=== PATIENT | male | born 1995 | race African-American/Black ===

== ENCOUNTER 2025-11-24 00:15 | Emergency (ER) | payer OTHER ==
[~2025-11-24] VITALS: Ht 182.9 cm; Wt 95.0 kg
[2025-11-24 00:21] VITALS: O2SAT 100
[2025-11-24] MEDS: ONDANSETRON HCL 4MG/2ML INJ IV ONE (01:19)
[2025-11-24] MEDS: PANTOPRAZOLE SODIUM 40 MG/VIAL IV ONE (01:20)
[2025-11-24] MEDS: MAGNESIUM/ALUMINUM HYDROXIDE/SIMETHICONE 30ML UDC PO ONE (01:20)
[2025-11-24] MEDS: SODIUM CHLORIDE 0.9% 1,000 ML IV ONE (01:21)
[2025-11-24] MEDS: KETOROLAC 15MG/ML VIAL IV ONE (01:21)
[2025-11-24 01:42] LABS: BASOPHILS % 1.0 % (0.0-2.0); EOSINOPHILS % 0.4 % (0.0-5.0); HEMATOCRIT. 41.3 % (42.0-52.0); HEMOGLOBIN. 14.2 g/dL (14.0-18.0); LYMPHOCYTES % 24.2 % (20.0-50.0); MEAN PLATELET VOLUME 9.0 fl (7.4-10.4); MONOCYTES % 8.4 % (2.0-8.0); NEUTROPHILS % 66.0 % (40.0-76.0); PLATELET 188 x1000/uL (130-400); RED BLOOD CELL COUNT 4.68 mill/uL (4.7-6.1); RED CELL DISTRIBUTION WIDTH 14.0 % (11.6-14.6)
[2025-11-24 01:52] LABS: CREATININE 1.0 mg/dL (0.6-1.3)
[2025-11-24 01:53] LABS: PROTEIN TOTAL 7.2 g/dL (6.0-8.3); UREA NITROGEN BLOOD 10 mg/dL (9-23)
[2025-11-24 01:54] LABS: ASPARTATE AMINOTRANSFERASE 51 IU/L (<34)
[2025-11-24 01:55] LABS: BILIRUBIN DIRECT 0.7 mg/dL (<=3.0); BILIRUBIN TOTAL 2.5 mg/dL (0.1-1.0)
[2025-11-24] MEDS ORDERED: ONDA4TAB50 MT (02:58)
[2025-11-24] MEDS ORDERED: IBUP-1455 MT (02:58)
[2025-11-24 03:08] VITALS: BP 138/80; PULSE 57; RESP 12; TEMP 37; O2SAT 98
== END 2025-11-24 03:23 | disposition home or self-care (01) ==
LOC: ER 00:17
DX: R53.83 Other fatigue (principal); E86.0 Dehydration; E11.9 Type 2 diabetes mellitus without complications
CPT/HCPCS: 99284; 96365; 96375; 80076; 80048; 83690; 85025; 36415; J1885; J2405; J2470; J7030